=== PATIENT | female | born 1980 | race African-American/Black ===

== ENCOUNTER 2019-02-23 23:50 | Emergency (ER) | payer OTHER ==
[~2019-02-23] VITALS: Ht 172.7 cm; Wt 109.1 kg
[2019-02-24 00:29] LABS: APPEARANCE,URINE CLEAR (CLEAR); BILIRUBIN,URINE NEGATIVE (NEGATIVE); GLUCOSE, URINE (UA) NEGATIVE (NEGATIVE); KETONES,URINE NEGATIVE (NEGATIVE); LEUKOCYTE ESTERASE ,URINE NEGATIVE (NEGATIVE); NITRATE,URINE POSITIVE (NEGATIVE); OCCULT BLOOD,URINE MODERATE (NEGATIVE); PROTEIN,URINE NEGATIVE (NEGATIVE); UROBILINOGEN,URINE 0.2 mg/dL (<=1.0)
[2019-02-24 01:00] LABS: SQUAMOUS EPITHELIAL CELL,UR Moderate /LPF (None Seen)
[2019-02-24 01:01] LABS: BACTERIA,URINE Few /HPF (None Seen)
[2019-02-24 04:06] VITALS: BP 148/93
== END 2019-02-24 04:17 | disposition home or self-care (01) ==
LOC: EMS 23:54
DX: N39.0 Urinary tract infection, site not specified (principal); Z88.8 Allergy status to other drugs, medicaments and biological substances
CPT/HCPCS: 76856; 87210; 87491; 87591

== ENCOUNTER 2019-09-13 10:02 | Emergency (ER) | payer OTHER ==
[~2019-09-13] VITALS: Ht 172.7 cm; Wt 113.6 kg
[2019-09-13 11:48] VITALS: BP 127/67
== END 2019-09-13 11:54 | disposition home or self-care (01) ==
LOC: EMS 10:03
DX: M67.432 Ganglion, left wrist (principal); Z88.8 Allergy status to other drugs, medicaments and biological substances

== ENCOUNTER 2020-09-27 06:33 | Emergency (ER) | payer OTHER ==
[~2020-09-27] VITALS: Ht 180.3 cm; Wt 104.5 kg
[2020-09-27] MEDS ORDERED: TOPI100T37 PO (06:43)
[2020-09-27] MEDS ORDERED: NEOMYCIN/POLYMYXIN B/HYDROCORT 10 ML OTIC SOLUTION AU ONE (07:30)
[2020-09-27 07:59] VITALS: BP 119/64
== END 2020-09-27 08:05 | disposition home or self-care (01) ==
LOC: EMS 06:34
DX: H60.93 Unspecified otitis externa, bilateral (principal); Z88.8 Allergy status to other drugs, medicaments and biological substances